=== PATIENT | male | born 1975 | race Caucasian/White ===

== ENCOUNTER → 2020-10-06 13:17 | Outpatient (BNVA) | payer OTHER, SELFPAY | PROVIDERS: PCP Family Medicine; Visit Provider Surgery | DX: D64.9 Anemia, unspecified (principal); Z86.010 Personal history of colon polyps | CPT/HCPCS: 87635 ==

== ENCOUNTER 2020-10-11 07:16 | Day surgery (SDC) | payer OTHER, SELFPAY ==
[2020-10-07 14:17] VITALS: BMI 33.5
[2020-10-11 07:26] VITALS: BP 148/100; PULSE 87; RESP 18; TEMP 36.6; O2SAT 96
[2020-10-11] MEDS: sodium chloride 0.9% 1,000 ML 30 ML IV (07:34)
--- NOTE | 2020-10-11 07:54 | ANES.PREANE2 ---
Pre-Anesthetic Assessment Pre-Anesthetic Assessment: Height/Weight: Height 1.8 m Weight 108.862 kg Temp Pulse Resp BP Pulse Ox 97.9 F 87 18 148/100 96 10/11/20 07:26 10/11/20 07:26 10/11/20 07:26 10/11/20 07:26 10/11/20 07:26 Preop Diagnosis: panendoscopy Proposed Procedure: Operation Date: 10/11/20 08:00 Proposed Procedures p EGD/colon 68847 [id number] D64.9 Z86.010(Not Applicable) - Tristan Steve MD s Colonoscopy(Not Applicable) - Tristan Steve MD Was Beta John taken within 24 hours: N/A Last intake: Intake Last Liquid Date 10/11/20 Last Solid Date 10/09/20 Social: Social History: Tobacco and No alcohol Exam: Pre-Anes Outpt Exam: alert, oriented x 3 and regular rate & rhythm Airway: Submandibular: WNL Cervical ROM: WNL MP: 2 Additional comments: upper edentulous Pulmonary: Pulmonary: COPD CV/HEM: CV/HEM: Anemia Anesthetic Plan: ASA status: 2 Anesthesia: MAC Risk of > 500 ml blood loss (7ml/kg in children): No Meds/Allergies Current Medications: Current Medications Generic Name Dose Route Start Last Admin Trade Name Freq PRN Reason Stop Dose Admin Sodium Chloride 1,000 mls @ 30 ml s/hr 10/11/20 07:15 10/11/20 07:34 Sodium Chloride 0.9% IV 10/12/20 07:14 30 mls/hr .Q24H NEGRO Administration PFSH Anesthesia PFSH: Medical History (Updated 09/21/20 @ 09:12 by Tristan Steve MD) Anxiety disorder Family history of colon cancer GERD (gastroesophageal reflux disease) Hemorrhoids Hyperlipidemia Iron deficiency anemia Major depressive disorder PTSD (post-traumatic stress disorder) Surgical History (Updated 09/20/20 @ 14:41 by Tristan Steve MD) History of colonoscopy with polypectomy (~2017) History of hemorrhoidectomy History of left knee surgery History of oral surgery Family History (Updated 09/20/20 @ 14:13 by Carmina Metcalf, STU) Mother Cancer colon cancer at 57 Denies family history of Anesthesia complication Bleeding disorder Social History (Updated 09/20/20 @ 14:14 by Carmina Metcalf RN) Smoking and tobacco status: never smoked Alcohol intake: never Adopted: No Caregiver/support person: Yes Lives independently: Yes Housing: House Pets and animals: No History of recent travel: No Sexually active: Yes Current gender identity: Male Temitope/Ep[employer]opalian: Evangelical Data Anesthesia Cardiac Studies: No Data to Display
--- NOTE | 2020-10-11 08:18 | W.PM.OPSUD ---
Surgery/Procedure H&P Update DATE OF PROCEDURE: October 11, 2020 DATE H&P PERFORMED: 09/20/20 H&P UPDATE INFORMATION: I have reviewed H&P completed within last 30 days, I have examined patient prior to procedure and No changes to prior documentation PREOP DIAGNOSIS: panendoscopy PLANNED PROCEDURE: Operation Date: 10/11/20 08:00 Proposed Procedures p EGD/colon [id number] D64.9 Z86.010(Not Applicable) - Tristan Steve MD s Colonoscopy(Not Applicable) - Tristan Steve MD
[2020-10-11 08:40] VITALS: BP 122/79; PULSE 76; RESP 16; TEMP 36.3; O2SAT 92
[2020-10-11 08:55] VITALS: BP 137/94; PULSE 67; RESP 66; O2SAT 99
--- NOTE | 2020-10-11 16:11 | ANE.PACU2 ---
Inpatient post-anesthesia follow up: Airway intact: Yes Vital signs: Temperature 97.4 F Pulse Rate 67 Respiratory Rate 66 Blood Pressure 137/94 Pulse Oximetry 99 Oxygen Delivery Me thod Room Air Oxygen Flow Rate Fraction of Inspir ed Oxygen Hydration adequate: Yes Nausea and vomiting: No Pain level: 1 Mental status: Baseline
== END 2020-10-11 09:21 | disposition home or self-care (01) ==
PROVIDERS: PCP Family Medicine; Visit Provider Surgery
PROC: 0DJ08ZZ Inspection of Upper Intestinal Tract, Via Natural or Artificial Opening Endoscopic (ICD-10-PCS; CPT 43235; principal; 2020-10-11 08:00)
PROC: 0DJD8ZZ Inspection of Lower Intestinal Tract, Via Natural or Artificial Opening Endoscopic (ICD-10-PCS; CPT 45378; 2020-10-11 08:00)
DX: D50.8 Other iron deficiency anemias (principal); Z80.0 Family history of malignant neoplasm of digestive organs; K64.8 Other hemorrhoids; E78.5 Hyperlipidemia, unspecified; F41.9 Anxiety disorder, unspecified; F32.9 Major depressive disorder, single episode, unspecified; J44.9 Chronic obstructive pulmonary disease, unspecified; K21.9 Gastro-esophageal reflux disease without esophagitis
CPT/HCPCS: 12345; 43235; 45378; J2704; J3490; J7030

== ENCOUNTER → 2024-10-20 08:19 | Outpatient (BNVA) | payer OTHER, SELFPAY | PROVIDERS: PCP Family Medicine; Visit Provider Surgery | DX: Z12.11 Encounter for screening for malignant neoplasm of colon (principal) | CPT/HCPCS: 99204 ==

== ENCOUNTER 2024-11-12 09:04 | Day surgery (SDC) | payer OTHER, SELFPAY ==
[2024-11-12 09:11] VITALS: BP 126/81; PULSE 70; RESP 18; TEMP 36.7; O2SAT 96; BMI 28.2
--- NOTE | 2024-11-12 09:30 | ANES.PREANE2 ---
Pre-Anesthetic Assessment Height/Weight: Height 1.8 m Preop Diagnosis: screening Operation Date: 11/12/24 10:20 Proposed Procedures p Colonoscopy 40830 G0105 K92.1(Not Applicable) - Noah Fung MD Familial anesthetic complications: none Was Beta John taken within 24 hours: N/A Was Clonidine taken within 24 hours: N/A Social No alcohol and No tobacco Exam alert, oriented x 3 and clear to auscultation bilaterally Airway Mallampati: Class I Dentition: full History/ROS No significant history except as noted Pulmonary None reported CV/HEM None reported None reported Hepatic None reported GI Gastroesophageal Reflux Disease Metabolic None reported Musc/skel None reported Neuropsych Anxiety Anesthetic Plan ASA status: 2 Anesthesia: Anesthesia Evaluation and MAC Risk of > 500 ml blood loss (7ml/kg in children): No Medications/Allergies Home Medications ?Medication ?Instructions ?Recorded ?Confirmed ?Last Taken ?Type cholecalciferol (vitamin D3) 50 50 mcg PO DAILY 09/20/20 11/10/24 11/10/24 History mcg (2,000 unit) capsule diclofenac sodium 1 % topical gel 2 g topical QID 09/20/20 11/10/24 10/10/20 History (Arthritis Pain (diclofenac)) ferrous gluconate 324 mg (37.5 mg 324 mg PO DAILY 09/20/20 11/10/24 11/09/24 History iron) tablet fluoxetine 60 mg tablet 60 mg PO QAM 09/20/20 11/10/24 11/10/24 History omeprazole 40 mg capsule,delayed 40 mg PO DAILY 09/20/20 11/10/24 11/10/24 History release multivitamin 1 tab PO DAILY 10/07/20 11/10/24 11/10/24 History buspirone 10 mg tablet 10 mg PO TID 10/20/24 11/10/24 11/10/24 History calcium polycarbophil 625 mg tablet 1,250 mg PO DAILY 10/20/24 11/10/24 11/10/24 History cetirizine 10 mg capsule (Allergy 10 mg PO DAILY PRN Allergy Symptoms 10/20/24 11/10/24 11/10/24 History Relief (cetirizine)) hydroxyzine HCl 25 mg tablet 25 mg PO TID PRN Anxiety 10/20/24 11/10/24 Unknown History naproxen 500 mg tablet 500 mg PO BID PRN Pain 10/20/24 11/10/24 Unknown History Allergies Allergy/AdvReac Type Severity Reaction Status Date / Time duloxetine Allergy Unknown Unknown Verified 11/12/24 09:15 latex Allergy ALGY-Rash Verified 11/12/24 09:15 [facility] Anesthesia Medical History Family history of colon cancer Hemorrhoids PTSD (post-traumatic stress disorder) Major depressive disorder Iron deficiency anemia Hyperlipidemia GERD (gastroesophageal reflux disease) Anxiety disorder Surgical History Status post colonoscopy (10/11/20) H/O esophagogastroduodenoscopy (10/11/20) History of oral surgery History of hemorrhoidectomy History of left knee surgery History of colonoscopy with polypectomy (~2016) Family History Mother Cancer colon cancer at 57 Denies family history of Anesthesia complication Bleeding disorder Social History Smoking and tobacco/nicotine status: never used tobacco/nicotine Alcohol intake: never Substance/Drug Use: never Adopted: No Caregiver/support person: Yes Lives independently: Yes Housing: House Pets and animals: No Sexually active: Yes Do you think of yourself as: Straight/Heterosexual Current gender identity: Male Temitope/Latter-Day: Zoroastrianism Data Anesthesia Cardiac Studies: No Data to Display
--- NOTE | 2024-11-12 09:30 | W.PM.OPSUD ---
Surgery/Procedure H&P Update DATE OF PROCEDURE: November 12, 2024 DATE H&P PERFORMED: 10/20/24 H&P UPDATE INFORMATION: I have reviewed H&P completed within last 30 days, I have examined patient prior to procedure, No changes to prior documentation and H&P is in [facility] on date indicated PLANNED PROCEDURE: Operation Date: 11/12/24 10:20 Proposed Procedures p Colonoscopy 20961 G0105 K92.1(Not Applicable) - Noah Fung MD
[2024-11-12] MEDS: sodium chloride 0.9% 500 ML 15 ML IV (09:33)
[2024-11-12 10:02] VITALS: BP 100/65; PULSE 55; RESP 16; TEMP 36.2; O2SAT 96
[2024-11-12 10:17] VITALS: BP 101/72; PULSE 55; RESP 16; O2SAT 96
[2024-11-12 10:43] VITALS: BP 122/78; PULSE 55; RESP 16; O2SAT 96
--- NOTE | 2024-11-12 10:45 | ANE.PACU2 ---
Inpatient post-anesthesia follow up: Airway intact: Yes Vital signs: Temperature 97.1 F Pulse Rate 55 Respiratory Rate 16 Blood Pressure 122/78 Pulse Oximetry 96 Oxygen Delivery Me thod Room Air Oxygen Flow Rate Fraction of Inspir ed Oxygen Hydration adequate: Yes Nausea and vomiting: No Pain level: 1 Mental status: Baseline
== END 2024-11-12 10:45 | disposition home or self-care (01) ==
PROVIDERS: PCP Nurse Practitioner Family; Visit Provider Surgery
PROC: 0DJD8ZZ Inspection of Lower Intestinal Tract, Via Natural or Artificial Opening Endoscopic (ICD-10-PCS; CPT 45378; principal; 2024-11-12 10:20)
DX: Z12.11 Encounter for screening for malignant neoplasm of colon (principal); K64.4 Residual hemorrhoidal skin tags; K62.89 Other specified diseases of anus and rectum; K21.9 Gastro-esophageal reflux disease without esophagitis; Z79.899 Other long term (current) drug therapy; Z88.8 Allergy status to other drugs, medicaments and biological substances; Z91.040 Latex allergy status; E78.5 Hyperlipidemia, unspecified; Z80.0 Family history of malignant neoplasm of digestive organs
CPT/HCPCS: 45380; 88305; J2704; J7040